=== PATIENT | male | born 1990 | race African-American/Black ===

== ENCOUNTER 2018-06-04 22:33 | Emergency (ER) | payer OTHER ==
[~2018-06-04] VITALS: Ht 185.4 cm; Wt 72.6 kg
--- NOTE | ~2018-06-04 | EKG ---
[place] [place] [address] [place] [address] ELECTROCARDIOGRAM REPORT Name: VAISHALI MORALES Room #: DEP OTTO Merchant#: [id number] Admission: 06/04/18 Attend Phys: Discharge: 06/05/18 Date of : [birth year] Report #: [id number] THIS REPORT FOR: //name// [facility] ED Test Date: 2018-06-04 Test Time: 22:47:45 Pat Name: VAISHALI MORALES Department: Room: Gender: Au Pair: Lloyd : 1990 Requested By: Ney Villela Order Number: [id number] MD: Nicola Adams Measurements Intervals [place] Rate: 114 P: 79 W[place]: 164 QRS: 65 QRSD: 84 T: 38 QT: 303 QTc: 418 Interpretive Statements Sinus tachycardia Biatrial enlargement Right ventricular conduction delay No previous ECG available for comparison Electronically Signed On 06-05-2018 8:52:59 CDT by Nicola Adams [email or web address] <ELECTRONICALLY SIGNED> By: Nicola Adams MD, [facility] 06/05/18 0852 [id number] Nicola Adams MD, FACC /EPI
[2018-06-04 23:28] LABS: ANION GAP 10 mmol/L (7-16); BUN 22 mg/dL (7-18); CALCIUM 9.2 mg/dL (8.5-10.1); CHLORIDE 101 mmol/L (98-107); CO2 27 mmol/L (21-32); CREATININE 1.5 mg/dL (0.7-1.3); GLUCOSE 151 mg/dL (74-106); POTASSIUM 3.8 mmol/L (3.5-5.1); SODIUM 138 mmol/L (136-145)
[2018-06-04 23:36] LABS: TROPONIN-I <0.06 ng/mL (<0.06)
[2018-06-04 23:48] LABS: AMP/METHAMP Negative (Negative); BARBITURATES Negative (Negative); BENZODIAZEPINES Negative (Negative); COCAINE Negative (Negative); METHADONE Negative (Negative); OPIATES Negative (Negative); PCP Negative (Negative)
[2018-06-05 01:25] VITALS: BP 116/74
[2018-06-05] MEDS ORDERED: KLOR-CON 1010 MEQ PO (18:07)
[2018-06-07] MEDS ORDERED: VISTARIL 25 MG25 M1 PO (00:34)
== END 2018-06-05 01:48 | disposition home or self-care (01) ==
LOC: ER 22:33
PROVIDERS: Emergency Medicine
DX: F41.9 Anxiety disorder, unspecified (principal); Z88.5 Allergy status to narcotic agent

== ENCOUNTER 2018-06-05 15:54 | Emergency (ER) | payer OTHER ==
[~2018-06-05] VITALS: Ht 185.4 cm; Wt 72.6 kg
--- NOTE | ~2018-06-05 | EKG ---
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: OTTO : 1990 Requested By: Sunitha Kuo Order Number: [id number] MD: Nicola Adams Measurements Intervals [place] Rate: 76 P: 44 [place]: 158 QRS: 65 QRSD: 84 T: 40 QT: 336 QTc: 378 Interpretive Statements Sinus rhythm ST elev, probable normal early repol pattern Compared to ECG 06/04/2018 22:47:45 Sinus tachycardia no longer present Electronically Signed On 06-05-2018 17:06:55 CDT by Nicola Adams [email or web address] <ELECTRONICALLY SIGNED> By: Nicola Adams MD, [facility] 06/05/18 1706 1632 163 Nicola Adams MD, FACC /EPI
[2018-06-05 16:52] LABS: ABSOLUTE NEUTROPHILS 6.4 thou/uL (1.4-8.2); BASOPHILS 0.4 % (0.0-2.0); EOSINOPHILS 0.1 % (0.0-3.0); HEMATOCRIT 48.5 % (42.0-52.0); HEMOGLOBIN 16.9 gm/dL (14.0-18.0); LYMPHOCYTES 9.6 % (24.0-44.0); MCH 30.4 pg (26.0-34.0); MCHC 34.9 g/dL (28.0-37.0); MONOCYTES 7.8 % (1.0-8.0); PLATELET COUNT 157 thou/uL (150-400); POLYS 82.1 % (36.0-66.0); RBC 5.58 mil/uL (4.50-6.00); RDW 13.1 % (10.5-14.5); WBC 7.7 thou/uL (4.0-11.0)
[2018-06-05 17:01] LABS: ANION GAP 6 mmol/L (7-16); BUN 12 mg/dL (7-18); CALCIUM 9.4 mg/dL (8.5-10.1); CHLORIDE 100 mmol/L (98-107); CO2 29 mmol/L (21-32); CREATININE 1.2 mg/dL (0.7-1.3); GLUCOSE 129 mg/dL (74-106); SODIUM 135 mmol/L (136-145)
[2018-06-05 17:10] LABS: ALBUMIN 4.5 g/dL (3.4-5.0); SGOT 25 U/L (15-37); SGPT 48 U/L (30-65); TOTAL BILIRUBIN 1.1 mg/dL (<0.1-1.0); TOTAL PROTEIN 7.7 g/dL (6.4-8.2); TROPONIN-I <0.06 ng/mL (<0.06)
[2018-06-05 17:22] LABS: URINE BILIRUBIN NEGATIVE (Negative); URINE BLOOD NEGATIVE (Negative); URINE CLARITY CLEAR; URINE COLOR YELLOW; URINE GLUCOSE-RANDOM* NEGATIVE (Negative); URINE KETONES NEGATIVE (Negative); URINE LEUKOCYTES-REFLEX NEGATIVE (Negative); URINE NITRITE-REFLEX NEGATIVE (Negative); URINE PROTEIN (DIPSTICK) NEGATIVE (Negative); URINE SPECIFIC GRAVITY <= 1.005 (1.005-1.035); URINE UROBILINOGEN 0.2 E.U./dl (0.2-1.0)
[2018-06-05 17:29] LABS: AMP/METHAMP Negative (Negative); BARBITURATES Negative (Negative); BENZODIAZEPINES Negative (Negative); COCAINE Negative (Negative); METHADONE Negative (Negative); OPIATES Negative (Negative); PCP Negative (Negative)
[2018-06-05] MEDS ORDERED: KLOR-CON 1010 MEQ PO (18:07)
[2018-06-05 18:27] VITALS: BP 117/68
[2018-06-07] MEDS ORDERED: VISTARIL 25 MG25 M1 PO (00:34)
== END 2018-06-05 18:29 | disposition home or self-care (01) ==
LOC: ER 15:54
PROVIDERS: Physician Assistant
DX: R00.2 Palpitations (principal); R00.0 Tachycardia, unspecified; E86.9 Volume depletion, unspecified; F41.9 Anxiety disorder, unspecified; Z88.5 Allergy status to narcotic agent

== ENCOUNTER 2018-10-21 00:23 | Emergency (ER) | payer OTHER ==
[~2018-10-21] VITALS: Ht 185.4 cm; Wt 72.6 kg
[~2018-10-21 00:23] MED LIST: KLOR-CON 1010 MEQ PO; NIFEDIPINE ER30 MG PO; PEPCID20 MG PO; VISTARIL 25 MG25 M1 PO
[2018-10-21 01:17] LABS: ABSOLUTE NEUTROPHILS 2.9 thou/uL (1.4-8.2); BASOPHILS 0.8 % (0.0-2.0); EOSINOPHILS 0.7 % (0.0-3.0); HEMATOCRIT 48.9 % (42.0-52.0); HEMOGLOBIN 16.7 gm/dL (14.0-18.0); LYMPHOCYTES 35.3 % (24.0-44.0); MCH 29.7 pg (26.0-34.0); MCHC 34.2 g/dL (28.0-37.0); MCV 86.9 fL (80.0-100.0); MONOCYTES 9.7 % (1.0-8.0); PLATELET COUNT 169 thou/uL (150-400); POLYS 53.5 % (36.0-66.0); RBC 5.63 mil/uL (4.50-6.00); RDW 13.1 % (10.5-14.5); WBC 5.3 thou/uL (4.0-11.0)
[2018-10-21 01:27] LABS: ANION GAP 7 mmol/L (7-16); BUN 16 mg/dL (7-18); CHLORIDE 102 mmol/L (98-107); CO2 28 mmol/L (21-32); CREATININE 1.2 mg/dL (0.7-1.3); GLUCOSE 96 mg/dL (74-106); POTASSIUM 3.8 mmol/L (3.5-5.1); SODIUM 137 mmol/L (136-145)
[2018-10-21 01:36] LABS: TROPONIN-I <0.06 ng/mL (<0.06)
[2018-10-21 01:58] VITALS: BP 105/55
--- NOTE | 2018-10-22 21:52 | EKG ---
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: ROJAS : 1990 Requested By: Ruma Bhatt Order Number: [id number] MD: Srinivasa Stafford Measurements Intervals [place] Rate: 60 P: 41 RI: 148 QRS: 70 QRSD: 94 T: 43 QT: 378 QTc: 378 Interpretive Statements Sinus rhythm ST elev, probable normal early repol pattern Compared to ECG 07/03/2018 20:34:34 Early repolarization no longer present ST (T wave) deviation still present Electronically Signed On 10-22-2018 21:52:31 TERRAZZO LAYER by Srinivasa Stafford [email or web address] <ELECTRONICALLY SIGNED> By: Srinivasa Stafford MD 10/22/182151 0027 0027 Srinivasa Stafford MD /SARINA
== END 2018-10-21 02:00 | disposition home or self-care (01) ==
LOC: ER 00:23
PROVIDERS: Student in an Organized Health Care Education/Training Program
DX: R07.89 Other chest pain (principal); F41.9 Anxiety disorder, unspecified; J45.909 Unspecified asthma, uncomplicated; Z88.5 Allergy status to narcotic agent

== ENCOUNTER 2018-12-19 18:19 | Emergency (ER) | payer OTHER ==
[~2018-12-19] VITALS: Ht 185.4 cm; Wt 81.2 kg
[2018-12-19 19:28] LABS: HEMATOCRIT 47.5 % (42.0-52.0); HEMOGLOBIN 16.3 gm/dL (14.0-18.0); MCH 29.4 pg (26.0-34.0); MCHC 34.2 g/dL (28.0-37.0); MCV 85.9 fL (80.0-100.0); PLATELET COUNT 170 thou/uL (150-400); RBC 5.53 mil/uL (4.50-6.00); RDW 13.1 % (10.5-14.5); WBC 5.1 thou/uL (4.0-11.0)
[2018-12-19] MEDS ORDERED: TRAZODONE 150150 M1 PO (19:31)
[2018-12-19] MEDS ORDERED: TOPROL XL25 MG PO (19:31)
[2018-12-19 19:34] LABS: AMP/METHAMP Negative (Negative); BARBITURATES Negative (Negative); BENZODIAZEPINES Negative (Negative); COCAINE Negative (Negative); METHADONE Negative (Negative); OPIATES Negative (Negative); PCP Negative (Negative)
[2018-12-19 19:39] LABS: ANION GAP 8 mmol/L (7-16); BUN 17 mg/dL (7-18); CALCIUM 8.9 mg/dL (8.5-10.1); CHLORIDE 101 mmol/L (98-107); CO2 31 mmol/L (21-32); CREATININE 1.4 mg/dL (0.7-1.3); GLUCOSE 96 mg/dL (74-106); POTASSIUM 3.9 mmol/L (3.5-5.1); SODIUM 140 mmol/L (136-145)
[2018-12-19 19:54] LABS: ALBUMIN 3.6 g/dL (3.4-5.0); MAGNESIUM 2.1 mg/dL (1.8-2.4); SGOT 39 U/L (15-37); SGPT 56 U/L (30-65); TOTAL BILIRUBIN 0.9 mg/dL (<0.1-1.0); TOTAL PROTEIN 7.3 g/dL (6.4-8.2); TROPONIN-I <0.06 ng/mL (<0.06)
[2018-12-19 20:00] VITALS: BP 100/57
[2018-12-19 20:08] LABS: ABSOLUTE NEUTROPHILS 2.9 thou/uL (1.4-8.2); ATYPICAL LYMPHS 4 %; PLATELET ESTIMATE NORMAL
--- NOTE | 2018-12-20 08:40 | EKG ---
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: WILLARD : 1990 Requested By: Isidro Morris Order Number: [id number] MD: Nicola Adams Measurements Intervals [place] Rate: 80 P: 72 [place]: 167 QRS: 69 QRSD: 85 T: 43 QT: 343 QTc: 396 Interpretive Statements Sinus rhythm RSR' in V1 or V2, probably normal variant Compared to ECG 10/21/2018 00:27:42 No significant change was found Electronically Signed On 12-20-2018 8:40:08 HEALTH SCIENCES MANAGER by Nicola Adams [email or web address] ��������������������������������������������� <ELECTRONICALLY SIGNED> ���������������������������������������� By: Nicola Adams MD, [facility] ��������������������������������������������� 12/20/18 0840 33 33 Nicola Adams MD, [facility] /EPI
== END 2018-12-19 20:21 | disposition home or self-care (01) ==
LOC: ER 18:19
PROVIDERS: Emergency Medicine
DX: F41.9 Anxiety disorder, unspecified (principal); G47.00 Insomnia, unspecified; R00.2 Palpitations; J45.909 Unspecified asthma, uncomplicated; Z88.6 Allergy status to analgesic agent